=== PATIENT | female | born 1970 | race Caucasian/White ===

== ENCOUNTER → 2018-02-26 | Outpatient (CLI) | payer MEDICARE, MEDICAID ==
[~2018-02-26] MED LIST: ADVAIR 250/501 EA INH; ALEVE220 MG PO; ATARAX25 MG PO; AUGMENTIN XR 101 TER PO; DOXYCYCLINE100 M2 PO; MOTRIN800 MG PO; NATURE'S BLEND400 I1 PO; NEXIUM40 MG PO; PERCOCET 325 MG1 TA2 PO; PREDNISONE20 MG PO; PRILOSEC20 MG PO; ROBAXIN750 MG PO; SEROQUEL100 MG PO; SINGULAIR10 MG PO; SPIRIVA18 MCG IH; TRAMADOL HCL50 MG PO
== END | disposition home or self-care (01) ==
LOC: MAMMO 16:00
DX: Z12.31 Encounter for screening mammogram for malignant neoplasm of breast (principal)

== ENCOUNTER → 2018-03-21 | Outpatient (CLI) | payer MEDICARE, MEDICAID | END | disposition home or self-care (01) | LOC: MAMMO 11:30 | DX: N63.0 Unspecified lump in unspecified breast (principal) ==

== ENCOUNTER → 2018-11-25 | Outpatient (CLI) | payer MEDICARE, MEDICAID ==
[2018-11-25 14:49] LABS: BASO # 0.1 10*3/uL (0.0-0.1); BASO % 0.8 % (0.0-1.0); EOS # 0.1 10*3/uL (0.0-0.4); HEMATOCRIT 41.3 % (37.0-47.0); HEMOGLOBIN 14.1 g/dl (12.0-16.0); LYMPH # 2.3 10*3/uL (1.3-4.4); LYMPH % 29.9 % (27.0-41.0); MEAN CELL VOLUME 97.9 fl (81.0-99.0); MEAN CORPUSCULAR HGB 33.4 pg (27.0-31.0); MEAN CORPUSCULAR HGB CONC 34.1 g/dl (33.0-37.0); MEAN PLATELET VOLUME 9.6 fl (9.6-12.3); MONO # 0.5 10*3/uL (0.1-1.0); MONO % 5.8 % (3.0-9.0); NEUT # 4.8 10*3/uL (2.3-7.9); PLATELET COUNT AUTOMATED 322 10*3/uL (130-400); RED BLOOD COUNT 4.22 10*6/uL (4.10-5.10); RED CELL DISTRI WIDTH 12.5 % (0-14.5); WHITE BLOOD COUNT 7.8 10*3/uL (4.8-10.8)
[2018-11-25 15:26] LABS: ALBUMIN 3.5 gm/dl (3.1-4.5); BUN 11 mg/dl (7-24); CHLORIDE 108 mmol/L (98-107); CREATININE 1.05 mg/dL (0.55-1.02); POTASSIUM 4.2 mmol/L (3.5-5.1); SGOT/AST 15 IU/L (3-35); SGPT/ALT 22 U/L (12-78); SODIUM 137 mmol/L (136-145); TOTAL PROTEIN 7.6 gm/dL (6.4-8.2)
[2018-11-25 15:28] LABS: ALKALINE PHOSPHATASE 77 U/L (45-117)
== END | disposition home or self-care (01) ==
LOC: LAB 14:13
PROVIDERS: Internal Medicine
DX: J06.9 Acute upper respiratory infection, unspecified (principal); J44.9 Chronic obstructive pulmonary disease, unspecified; R07.9 Chest pain, unspecified

== ENCOUNTER → 2019-04-01 | Outpatient (CLI) | payer MEDICARE, MEDICAID | END | disposition home or self-care (01) | LOC: US 13:30 → MAMMO 14:30 | DX: N63.10 Unspecified lump in the right breast, unspecified quadrant (principal); R31.21 Asymptomatic microscopic hematuria ==

== ENCOUNTER 2019-07-07 16:16 | Inpatient (IN) | payer MEDICARE, MEDICAID ==
[~2019-07-07] VITALS: Ht 154.9 cm; Wt 88.2 kg
[2019-07-07 16:30] VITALS: BP 135/83
--- NOTE | 2019-07-07 16:30 | NUR ---
A 49, admitted to , under the services of MARY BETH Ibrahim MD with a diagnosis of CHEST PAIN. Chief complaint is LEFT SIDED CHEST PAIN RADIATING TO LEFT ARM. Patient arrived via stretcher from [place]. Monitor applied. Initial assessment completed. Vital signs taken and recorded. MARY BETH IBRAHIM MD notified of admission to the unit. Orders received. See assessment for past medical history, medications and allergies. Patient and/or family oriented to unit. [facility] visitation policy reviewed. Clothing/patient valuable form completed. DAVIDSON
[2019-07-07 17:30] LABS: BASO # 0.1 10*3/uL (0.0-0.1); BASO % 0.8 % (0.0-1.0); EOS # 0.1 10*3/uL (0.0-0.4); HEMATOCRIT 39.1 % (37.0-47.0); HEMOGLOBIN 13.4 g/dl (12.0-16.0); LYMPH # 2.7 10*3/uL (1.3-4.4); LYMPH % 26.5 % (27.0-41.0); MEAN CELL VOLUME 98.2 fl (81.0-99.0); MEAN CORPUSCULAR HGB 33.7 pg (27.0-31.0); MEAN CORPUSCULAR HGB CONC 34.3 g/dl (33.0-37.0); MEAN PLATELET VOLUME 10.2 fl (9.6-12.3); MONO # 0.6 10*3/uL (0.1-1.0); MONO % 5.8 % (3.0-9.0); NEUT # 6.7 10*3/uL (2.3-7.9); NEUT % 65.7 % (47.0-73.0); PLATELET COUNT AUTOMATED 281 10*3/uL (130-400); RED BLOOD COUNT 3.98 10*6/uL (4.10-5.10); RED CELL DISTRI WIDTH 12.3 % (0-14.5); WHITE BLOOD COUNT 10.2 10*3/uL (4.8-10.8)
[2019-07-07 18:00] LABS: ALBUMIN 3.6 gm/dl (3.1-4.5); ALKALINE PHOSPHATASE 100 U/L (45-117); BUN 8 mg/dl (7-24); CHLORIDE 107 mmol/L (98-107); CREATININE 0.98 mg/dL (0.55-1.02); POTASSIUM 3.3 mmol/L (3.5-5.1); SGOT/AST 15 IU/L (3-35); SGPT/ALT 20 U/L (12-78); SODIUM 138 mmol/L (136-145); TOTAL PROTEIN 7.4 gm/dL (6.4-8.2)
[2019-07-07] MEDS ORDERED: VIIBRYD10 M1 PO (18:04)
[2019-07-07] MEDS ORDERED: NEURONTIN400 MG PO (18:04)
[2019-07-07] MEDS ORDERED: ATIVAN0.5 MG PO (18:05)
[2019-07-07] MEDS ORDERED: LIPITOR40 MG PO (18:05)
[2019-07-07] MEDS ORDERED: TRAMADOL HCL50 MG PO (18:07)
[2019-07-07 18:14] LABS: TROPONIN I < 0.015 ng/ml (<0.045)
--- NOTE | 2019-07-07 18:22 | NUR ---
DR MEYERS CONSULT CALLED TO [facility] STAFF.
[2019-07-07 20:00] VITALS: BP 112/68
--- NOTE | 2019-07-07 20:26 | NUR ---
DR. SAMANIEGO NOTIFIED OF PT'S MED REC UTD AND PT WANTING HS MEDS.
[2019-07-08] VITALS: BP 103/61
--- NOTE | 2019-07-08 04:00 | NUR ---
PATIENT RESTING IN A POSITION OF COMFORT AT THIS TIME, NO SIGNS OR SYMPTOMS OF DISTRESS NOTED AT THIS TIME. NOT AWAKENED PER [facility] [place] POLICY. CALL LIGHT WITHIN REACH,WILL CONTINUE TO MONITOR.
[2019-07-08 06:36] LABS: BASO # 0.1 10*3/uL (0.0-0.1); BASO % 0.8 % (0.0-1.0); EOS # 0.1 10*3/uL (0.0-0.4); EOS % 1.5 % (1.0-4.0); HEMATOCRIT 38.4 % (37.0-47.0); HEMOGLOBIN 12.8 g/dl (12.0-16.0); LYMPH # 3.1 10*3/uL (1.3-4.4); LYMPH % 34.3 % (27.0-41.0); MEAN CELL VOLUME 97.7 fl (81.0-99.0); MEAN CORPUSCULAR HGB 32.6 pg (27.0-31.0); MEAN CORPUSCULAR HGB CONC 33.3 g/dl (33.0-37.0); MEAN PLATELET VOLUME 9.9 fl (9.6-12.3); MONO # 0.7 10*3/uL (0.1-1.0); MONO % 7.7 % (3.0-9.0); NEUT % 55.5 % (47.0-73.0); PLATELET COUNT AUTOMATED 269 10*3/uL (130-400); RED BLOOD COUNT 3.93 10*6/uL (4.10-5.10); RED CELL DISTRI WIDTH 12.2 % (0-14.5); WHITE BLOOD COUNT 9.1 10*3/uL (4.8-10.8)
[2019-07-08 06:51] LABS: BUN 11 mg/dl (7-24); CHLORIDE 108 mmol/L (98-107); CHOLESTEROL 114 mg/dL (<200); CREATININE 0.93 mg/dL (0.55-1.02); POTASSIUM 3.9 mmol/L (3.5-5.1); SODIUM 138 mmol/L (136-145)
[2019-07-08 07:02] LABS: FREE T4 0.93 ng/dl (0.76-1.46); HDL CHOLESTEROL 27 mg/dl (40-60); LDL CHOLESTEROL 60 mg/dL (9-159); PHOSPHOROUS 2.2 mg/dL (2.5-4.9); TRIGLYCERIDES 136 mg/dl (<150); VLDL CHOLESTEROL 27 mg/dL (6-40)
[2019-07-08 07:38] LABS: VITAMIN D, 25-HYDROXY 23.6 ng/mL (30-100)
[2019-07-08 07:58] VITALS: BP 116/80
--- NOTE | 2019-07-08 09:49 | NUR ---
PATIENT TO STRESS TEST BY WHEELCHAIR.
--- NOTE | 2019-07-08 10:00 | NUR ---
Polymer Chemist in to see patient. She is currently not in her room. Will follow up at a later time.
--- NOTE | 2019-07-08 10:28 | NUR ---
PER CARDIAC REHAB, IV SITE LOST/SYMPTOMATIC. HEPLOCK REMOVED, PER DR. SELLERS PATIENT NEEDS PICC LINE PLACED IN ORDER FOR SECOND PART OF THE TEST TO BE COMPLETED. [facility] STAFF PROCEEDING WITH FIRST PART OF STRESS TEST.
--- NOTE | 2019-07-08 10:30 | NUR ---
IV NOT WORKING, 4 ATTEMPTS WITH 2 RNS AND NUCLEAR TECH, UNSUCCESSFUL. DR SELLERS NOTIFIED. STATES TO ORDER PICC LINE. ORDER PLACED. ANDREIA MERCADO NOTIFIED.
--- NOTE | 2019-07-08 11:15 | NUR ---
MEDICATED WITH PRN PO TYLENOL FOR HEADACHE.
[2019-07-08 12:00] VITALS: BP 104/53
--- NOTE | 2019-07-08 12:13 | NUR ---
PATIENT REFUSES ANY FURTHER ATTEMPTS AT IV RESTART PERIPHERALLY. ORDER IS ENTERED FOR PICC LINE PLACEMENT AND PATIENT IS AGREEABLE TO IT.
[2019-07-08 16:00] VITALS: BP 95/60
[2019-07-08 20:00] VITALS: BP 110/60
--- NOTE | 2019-07-08 20:49 | NUR ---
PATIENT WAS AGREEABLE TO ONE ATTEMPT AT IV INSERTION. ATTEMPT BY JESS EASLEY UNSUCCESSFUL. DR SAMANIEGO MADE AWARE. STATES HE WILL COME AND SEE THE PATIENT.
--- NOTE | 2019-07-08 20:53 | NUR ---
PATIENT MEDICATED WITH PRN ATIVAN FOR C/O ANXIOUSNESS. WILL MONITOR
--- NOTE | 2019-07-08 22:44 | NUR ---
24 HR chart check completed.
--- NOTE | 2019-07-08 23:28 | NUR ---
DR SAMANIEGO AWARE OF BLOOD PRESSURE
--- NOTE | 2019-07-08 23:57 | NUR ---
DR SAMANIEGO AT BEDSIDE TO ATTEMPT IV ACCESS
[2019-07-09] VITALS: BP 88/49
--- NOTE | 2019-07-09 02:08 | NUR ---
PATIENT RESTING IN BED WITH NO S/S OF DISTRESS. BED IN LOWEST POSITION, CALL LIGHT IN REACH
[2019-07-09 02:22] VITALS: BP 102/60
[2019-07-09 06:33] LABS: BUN 11 mg/dl (7-24); CHLORIDE 106 mmol/L (98-107); CREATININE 0.96 mg/dL (0.55-1.02); POTASSIUM 3.8 mmol/L (3.5-5.1); SODIUM 138 mmol/L (136-145)
[2019-07-09 06:37] LABS: BASO # 0.1 10*3/uL (0.0-0.1); BASO % 0.5 % (0.0-1.0); EOS # 0.1 10*3/uL (0.0-0.4); EOS % 1.3 % (1.0-4.0); HEMATOCRIT 38.6 % (37.0-47.0); LYMPH % 32.3 % (27.0-41.0); MEAN CELL VOLUME 97.2 fl (81.0-99.0); MEAN CORPUSCULAR HGB 32.7 pg (27.0-31.0); MEAN CORPUSCULAR HGB CONC 33.7 g/dl (33.0-37.0); MEAN PLATELET VOLUME 10.2 fl (9.6-12.3); MONO # 0.7 10*3/uL (0.1-1.0); MONO % 7.1 % (3.0-9.0); NEUT # 5.5 10*3/uL (2.3-7.9); NEUT % 58.5 % (47.0-73.0); PLATELET COUNT AUTOMATED 268 10*3/uL (130-400); RED BLOOD COUNT 3.97 10*6/uL (4.10-5.10); WHITE BLOOD COUNT 9.3 10*3/uL (4.8-10.8)
[2019-07-09 08:00] VITALS: BP 112/70
--- NOTE | 2019-07-09 10:00 | NUR ---
[employer] Supervisor in to talk to patient. Patient states lives at home alone with her family checking in on her. There are 7 steps in the home. Physician: Dr. Gene Davis Pharmacy: [facility] Home health services: none Patient's level of ADLs: INDEPENDENT Patient has working utilities: yes DME: [employer] Follow-up physician's appointment after d/c: she prefers to make her own follow up appt after discharge Does patient want to access PORTAL?: no Discharge plan discussed with patient. She lives at home with her family checking in on her. She is independent in her ADLs and ambulation. Discussed home health care services and she denies any home needs at this time. When medically stable she will be discharged to home. Her friend, Kameron, will provide transportation on discharge. GOLDIE BLACKWELL
--- NOTE | 2019-07-09 10:40 | NUR ---
PATIENT TO CARDIAC REHAB BY WHEELCHAIR FOR 2ND PART OF STRESS TEST AT THIS TIME.
--- NOTE | 2019-07-09 10:42 | NUR ---
INFORMED CONSENT OBTAINED FOR A LEXISCAN STRESS TEST WITH DR. SELLERS. RESTING EKG NSR WITH A HT RT OF 93 AND BP OF 148/64. LUNG SOUNDS CLEAR ELIZABETH, POX 100% VIA RA. COMPLETED ONE MINUTE OF A LEXISCAN STRESS TEST RECEIVING LEXISCAN 0.4 MG OVER 10 SECONDS. DEVELOPED AN "ODD, WARM FEELING" THAT WAS RELEIVED IN RECOVERY. HAD A PEAK HT RT OF 135, WITH A BP OF 118/70. LAST RECOVERY HT RT OF 106, WITH A BP OF 122/80. AWAITING NUCLEAR IMAGING IN STABLE CONDITION.
[2019-07-09 12:00] VITALS: BP 113/70
--- NOTE | 2019-07-09 12:29 | NUR ---
PATIENT RETURNED FROM STRESS TEST, RESUMING MEDS AND DIET.
[2019-07-09 16:00] VITALS: BP 100/50
--- NOTE | 2019-07-09 17:45 | NUR ---
DR. HARMON NOTIFIED THAT STRESS TEST RESULTED, PER DR. HARMON, DISCHARGE ORDERS WILL BE ENTERED.
[2019-07-09] MEDS ORDERED: VITAMIN D32000 UNI1 PO (17:46)
--- NOTE | 2019-07-09 18:32 | NUR ---
Discharge instructions reviewed with patient. Patient receptive and verbalizes understanding. Follow-up care arranged. Written instructions given to patient. JOHN FERRARI
--- NOTE | 2019-07-09 19:15 | NUR ---
PATIENT DISCHARGED TO FRONT LOBBY, AMBULATORY, FOR TRANSPORT HOME BY PRIVATE VEHICLE WITH FAMILY MEMBER.
--- NOTE | 2019-07-09 19:30 | NUR ---
PT DISCHARGED TO HOME. ALL BELONGINGS SENT WITH PT. ALL PAPERWORK DONE.
== END 2019-07-09 20:15 | disposition home or self-care (01) | DRG 206 ==
LOC: 5E 16:16
PROVIDERS: Internal Medicine; ADMIT Internal Medicine
PROC: 3E073KZ Introduction of Other Diagnostic Substance into Coronary Artery, Percutaneous Approach (ICD-10-PCS; principal; 2019-07-09)
PROC: 4A02XM4 Measurement of Cardiac Total Activity, External Approach (ICD-10-PCS; principal; 2019-07-09)
DX: M94.0 Chondrocostal junction syndrome [Tietze] (principal); I24.9 Acute ischemic heart disease, unspecified; K21.9 Gastro-esophageal reflux disease without esophagitis; F41.9 Anxiety disorder, unspecified; E78.5 Hyperlipidemia, unspecified; F60.3 Borderline personality disorder; F32.9 Major depressive disorder, single episode, unspecified; G43.909 Migraine, unspecified, not intractable, without status migrainosus; F43.10 Post-traumatic stress disorder, unspecified; J45.909 Unspecified asthma, uncomplicated; G89.29 Other chronic pain; M54.9 Dorsalgia, unspecified; Z85.42 Personal history of malignant neoplasm of other parts of uterus; Z98.51 Tubal ligation status; Z83.3 Family history of diabetes mellitus; Z80.9 Family history of malignant neoplasm, unspecified; Z83.6 Family history of other diseases of the respiratory system; Z88.1 Allergy status to other antibiotic agents; Z88.6 Allergy status to analgesic agent; Z88.8 Allergy status to other drugs, medicaments and biological substances; Z79.899 Other long term (current) drug therapy

== ENCOUNTER → 2019-11-25 | Outpatient (CLI) | payer MEDICARE, MEDICAID ==
[~2019-11-25] MED LIST changes: +ATIVAN0.5 MG PO; +LIPITOR40 MG PO; +NEURONTIN400 MG PO; +VIIBRYD10 M1 PO; +VITAMIN D32000 UNI1 PO
== END | disposition home or self-care (01) ==
LOC: CT 11-11 10:00 → CARD 11-11 11:00 → CT 10:00
DX: R42 Dizziness and giddiness (principal)

== ENCOUNTER → 2020-06-10 | Outpatient (CLI) | payer MEDICARE, MEDICAID | END | disposition home or self-care (01) | LOC: MAMMO 01:03 | PROVIDERS: ATTEND Internal Medicine | DX: Z12.31 Encounter for screening mammogram for malignant neoplasm of breast (principal); N63.15 Unspecified lump in the right breast, overlapping quadrants ==

== ENCOUNTER → 2022-01-17 | Outpatient (CLI) | payer OTHER, MEDICAID | LOC: MAMMO 12-19 09:00 | PROVIDERS: ATTEND Internal Medicine | DX: Z12.31 Encounter for screening mammogram for malignant neoplasm of breast (principal); N64.59 Other signs and symptoms in breast; N63.12 Unspecified lump in the right breast, upper inner quadrant ==

== ENCOUNTER → 2023-02-19 | Outpatient (CLI) | payer OTHER, MEDICAID | END | disposition home or self-care (01) | LOC: RAD 09:55 | PROVIDERS: ATTEND Orthopaedic Surgery | DX: S62.102A Fracture of unspecified carpal bone, left wrist, initial encounter for closed fracture (principal); X58.XXXA Exposure to other specified factors, initial encounter; Y93.89 Activity, other specified; Y92.89 Other specified places as the place of occurrence of the external cause; Y99.8 Other external cause status ==

== ENCOUNTER → 2023-03-12 | Outpatient (CLI) | payer OTHER, MEDICAID | END | disposition home or self-care (01) | LOC: ORTHO 10:18 | PROVIDERS: ATTEND Orthopaedic Surgery | DX: S62.102A Fracture of unspecified carpal bone, left wrist, initial encounter for closed fracture (principal); X58.XXXA Exposure to other specified factors, initial encounter; Y93.89 Activity, other specified; Y92.89 Other specified places as the place of occurrence of the external cause; Y99.8 Other external cause status ==

== ENCOUNTER → 2023-03-14 | Outpatient (CLI) | payer OTHER, MEDICAID | END | disposition home or self-care (01) | LOC: MAMMO 02-22 11:00 | PROVIDERS: ATTEND Internal Medicine | DX: Z12.31 Encounter for screening mammogram for malignant neoplasm of breast (principal) ==

== ENCOUNTER 2023-10-29 14:49 | Inpatient (IN) | payer OTHER, MEDICAID ==
[~2023-10-29] VITALS: Ht 154.9 cm; Wt 99.4 kg
[2023-10-29 14:57] VITALS: BP 144/78
[2023-10-29 15:49] LABS: BASO # 0.1 10*3/uL (0.0-0.1); BASO % 0.7 % (0.0-1.0); EOS # 0.1 10*3/uL (0.0-0.4); EOS % 1.5 % (1.0-4.0); LYMPH # 2.9 10*3/uL (1.3-4.4); LYMPH % 30.4 % (27.0-41.0); MEAN CELL VOLUME 97.3 fl (81.0-99.0); MEAN CORPUSCULAR HGB 31.7 pg (27.0-31.0); MEAN CORPUSCULAR HGB CONC 32.6 g/dl (33.0-37.0); MONO # 0.6 10*3/uL (0.1-1.0); MONO % 6.3 % (3.0-9.0); NEUT # 5.8 10*3/uL (2.3-7.9); NEUT % 60.8 % (47.0-73.0); PLATELET COUNT AUTOMATED 317 10*3/uL (130-400); RED BLOOD COUNT 4.01 10*6/uL (4.10-5.10); RED CELL DISTRI WIDTH 12.5 % (0-14.5); WHITE BLOOD COUNT 9.6 10*3/uL (4.8-10.8)
[2023-10-29 15:59] LABS: ACT PARTIAL THROMBO TIME 27.4 SECONDS (20.0-32.1)
[2023-10-29 16:12] VITALS: BP 125/74
[2023-10-29 16:13] LABS: ALKALINE PHOSPHATASE 103 U/L (46-116); BUN 15 mg/dl (9-23); CHLORIDE 105 mmol/L (98-107); POTASSIUM 3.7 mmol/L (3.4-5.1); SGPT/ALT 13 U/L (5-49); TOTAL PROTEIN 7.2 gm/dL (6.0-8.0)
[2023-10-29 17:36] VITALS: BP 127/77
[2023-10-29 20:10] VITALS: BP 116/62
[2023-10-29 22:29] VITALS: BP 118/79
[2023-10-30] MEDS ORDERED: VIIBRYD40 PO (01:00)
[2023-10-30 01:02] VITALS: BP 123/62
[2023-10-30] MEDS ORDERED: LORazepam 0.5 MG TAB PO PRN (01:50)
[2023-10-30] MEDS ORDERED: GABAPENTIN 400 MG CAP PO PRN (01:50)
[2023-10-30 06:28] VITALS: BP 105/52
[2023-10-30] MEDS ORDERED: Regadenoson 0.4 MG/5 ML SYR IV ONE (06:46)
[2023-10-30] MEDS ORDERED: Enoxaparin Sodium 40 MG/0.4 ML SYR SC SCH (10:00)
[2023-10-30 14:43] VITALS: BP 106/52
[2023-10-30] MEDS ORDERED: Pantoprazole Sodium 40 MG TAB PO SCH (22:00)
[2023-10-30] MEDS ORDERED: ATORVASTATIN CALCIUM 40 MG TABLET PO SCH (22:00)
[2023-10-30] MEDS ORDERED: VILAZODONE HYDROCHLORIDE 40 MG PO SCH (22:00)
== END 2023-10-30 18:59 | disposition home or self-care (01) | DRG 392 ==
LOC: ED 14:49 → EDHOLD 16:34 → 5E 10-30 12:44
PROVIDERS: Nurse Practitioner Family; ADMIT Internal Medicine; ATTEND Internal Medicine
PROC: 4A02XM4 Measurement of Cardiac Total Activity, External Approach (ICD-10-PCS; principal; 2023-10-30)
PROC: 3E073KZ Introduction of Other Diagnostic Substance into Coronary Artery, Percutaneous Approach (ICD-10-PCS; 2023-10-30)
DX: K21.9 Gastro-esophageal reflux disease without esophagitis (principal); J45.909 Unspecified asthma, uncomplicated; G43.909 Migraine, unspecified, not intractable, without status migrainosus; F43.10 Post-traumatic stress disorder, unspecified; E78.5 Hyperlipidemia, unspecified; Z98.51 Tubal ligation status; Z90.49 Acquired absence of other specified parts of digestive tract; Z83.3 Family history of diabetes mellitus; Z88.1 Allergy status to other antibiotic agents; Z88.5 Allergy status to narcotic agent; Z79.899 Other long term (current) drug therapy

== ENCOUNTER → 2024-01-31 | Outpatient (CLI) | payer MEDICARE, MEDICAID ==
[~2024-01-31] MED LIST changes: +VIIBRYD40 PO
== END | disposition home or self-care (01) ==
LOC: US 01-23 14:30
PROVIDERS: ATTEND Internal Medicine
DX: M79.604 Pain in right leg (principal); M79.605 Pain in left leg

== ENCOUNTER → 2024-07-16 | Outpatient (CLI) | payer MEDICARE, MEDICAID | END | disposition home or self-care (01) | LOC: MAMMO 06-09 08:30 | PROVIDERS: ATTEND Internal Medicine | DX: Z12.31 Encounter for screening mammogram for malignant neoplasm of breast (principal) ==